=== PATIENT | male | born 1960 | race Caucasian/White ===

== ENCOUNTER → 2020-09-30 | Outpatient (CLI) | payer MEDICARE | LOC: EMI 13:00 | DX: M50.11 Cervical disc disorder with radiculopathy, high cervical region (principal); M51.14 Intervertebral disc disorders with radiculopathy, thoracic region | CPT/HCPCS: 72141; 72146 ==

== ENCOUNTER → 2020-10-18 | Outpatient (CLI) | payer MEDICARE | LOC: KOH-I 13:48 | DX: M25.571 Pain in right ankle and joints of right foot (principal); M79.671 Pain in right foot; M19.072 Primary osteoarthritis, left ankle and foot | CPT/HCPCS: 73610; 73630 ==